=== PATIENT | female | born 2005 | race Caucasian/White ===

== ENCOUNTER 2023-04-07 18:27 | Emergency (ER) | payer OTHER ==
[2023-04-07 18:33] VITALS: BP 129/84; PULSE 80; RESP 20; TEMP 99.6; BMI 25.4
[2023-04-07] MEDS ORDERED: ACETAMINOPHEN 500 MG TABLET (FP) PO ONE (19:14)
[2023-04-07] MEDS ORDERED: ACETAMINOPHEN 500 MG TABLET (FP) ONE (19:32)
== END 2023-04-07 21:07 | disposition home or self-care (01) ==
LOC: JERFT 18:27
DX: S05.91XA Unspecified injury of right eye and orbit, initial encounter (principal); H11.31 Conjunctival hemorrhage, right eye; S00.412A Abrasion of left ear, initial encounter; R22.0 Localized swelling, mass and lump, head; Y04.0XXA Assault by unarmed brawl or fight, initial encounter
CPT/HCPCS: 70486-TC; 99284-25